=== PATIENT | female | born 1955 | race African-American/Black ===

== ENCOUNTER 2016-12-27 14:00 | Emergency (ER) | payer MEDICARE, OTHER ==
[~2016-12-27] VITALS: Ht 167.6 cm; Wt 65.8 kg
[~2016-12-27 14:00] MED LIST: IBUPROFEN600 MG ORAL
[2016-12-27] MEDS ORDERED: KENALOG 0.5% CR15 GM APPLIC (15:01)
[2016-12-27] MEDS ORDERED: ACNE CLEARING295 ML TP (15:01)
[2016-12-27 15:15] VITALS: BP 123/69
[2016-12-27 15:35] VITALS: BP 123/69
--- NOTE | 2016-12-27 16:13 | Emergency Room Report ---
History of Present Illness General Chief Complaint: Skin Rash/Abscess Source: Patient Present Illness HPI 61 y/o female c/o rash on face x 1 year. 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 Assoc sxs include light patches on face that are moderately pruritic. States she tried OTC eczema cream x 1 w/o improvement and was never given medication by her PCP to treat this condition. Patient is also requesting face wash for her acne. Allergies: Coded Allergies: No Known Allergies (Unverified , 12/17/15) Patient History Past Medical History: see triage record Now: No Reviewed Nursing Documentation: PMH: Agreed, PSxH: Agreed Nursing Documentation-PMH Past Medical History: No Stated History Hx Hypertension: Yes Review of Systems All Other Systems: negative except mentioned in HPI Physical Exam Vital Signs Date Time Temp Pulse Resp B/P Pulse Ox O2 Delivery O2 Flow Rate FiO2 12/27/16 14:40 98.4 59 18 123/69 98 Room Air Sp02 EP Interpretation: reviewed, normal General Appearance: no apparent distress, alert, GCS 15, non-toxic Head: normocephalic, atraumatic Eyes: bilateral eye PERRL, bilateral eye normal inspection ENT: hearing grossly normal, normal pharynx, no angioedema, normal voice Neck: full range of motion Respiratory: chest non-tender, lungs clear, normal breath sounds, speaking full sentences Cardiovascular #1: regular rate, rhythm, no edema Gastrointestinal: normal inspection, no rebound Musculoskeletal: normal inspection, gait/station normal, normal range of motion , non-tender Neurologic: alert, oriented x3, responsive, motor strength/tone normal, sensory intact, speech normal Psychiatric: judgement/insight normal, memory normal, mood/affect normal, no suicidal/homicidal ideation Skin: normal color, warm/dry, well hydrated, rash - Hypopigmented patches on cheaks bilaterally with silver scales Lymphatic: no adenopathy Medical Decision Making PA Attestation Dr. Hernandez is my supervising physician with whom patient management has been discussed with. Diagnostic Impression: Primary Impression: Rash and other nonspecific skin eruption ER Course Pt. presents to the ED c/o rash x 1 year Ddx considered but are not limited to atopic dermatitis, allergic reaction, dry skin, tinea versicolor, tinea Vital signs: are WNL, pt. is afebrile H&PE are most consistent with atopic dermatitis ORDERS: none required at this time, the diagnosis is clinical ED INTERVENTIONS: none required at this time. DISCHARGE: At this time pt. is stable for d/c to home. Will provide printed patient care instructions, and any necessary prescriptions. Care plan and follow up instructions have been discussed with the patient prior to discharge. Last Vital Signs Date Time Temp Pulse Resp B/P Pulse Ox O2 Delivery O2 Flow Rate FiO2 12/27/16 15:35 98.4 59 18 123/69 98 Room Air Disposition: HOME, SELF-CARE Condition: Stable Scripts Zach [employer] Micro/Skin Clnsr#24 (ACNE CLEARING SYSTEM) 295 Ml Combo..pkg 1 ML TP BEDTIME, #1 PACK Prov: ANAYA PARHAM 12/27/16 Triamcinolone Acet (Triamcinolone Acetonide) 15 Gm Cream..g. 15 GM APPLIC BID for 14 Days, #60 GM Prov: ANAYA PARHAM 12/27/16 Referrals: NOT CHOSEN [facility]/,REFERRING (PCP) Patient Instructions: Eczema, Rash ANAYA PARHAM Dec 27, 2016 16:13
== END 2016-12-27 15:25 | disposition home or self-care (01) ==
LOC: EMR 15:02
DX: R21 Rash and other nonspecific skin eruption (principal); I10 Essential (primary) hypertension
CPT/HCPCS: 99284

== ENCOUNTER 2018-04-18 10:23 | Emergency (ER) | payer MEDICARE, OTHER ==
[~2018-04-18] VITALS: Ht 167.6 cm; Wt 63.5 kg
[~2018-04-18 10:23] MED LIST changes: +ACNE CLEARING295 ML TP; +KENALOG 0.5% CR15 GM APPLIC
[2018-04-18 10:40] VITALS: BP 118/62
[2018-04-18] MEDS ORDERED: PREDNISONE20 MG ORAL (11:03)
[2018-04-18] MEDS ORDERED: CEPHALEXIN500 MG ORAL (11:03)
[2018-04-18] MEDS ORDERED: BENADRYL25 MG ORAL (11:03)
[2018-04-18 11:09] VITALS: BP 116/68
--- NOTE | 2018-04-18 11:16 | Emergency Room Report ---
History of Present Illness General Chief Complaint: Earache Source: Patient Present Illness HPI Patient presents with complaints of left ear swelling At the tragus of the ear patient had noticed increased swelling this morning Denies any fevers or chills There was a very minimal itching sensation Denies any change in her hearing Denies any discharge denies any trauma Patient wears glasses and feels that they did cause a little bit of irritation in the occipital region of the scalp Allergies: Coded Allergies: No Known Allergies (Unverified , 12/17/15) Patient History Past Medical History: see triage record Pertinent Family History: none Reviewed Nursing Documentation: PMH: Agreed; PSxH: Agreed Nursing Documentation-PMH Hx Hypertension: Yes Review of Systems All Other Systems: negative except mentioned in HPI Physical Exam Vital Signs Date Time Temp Pulse Resp B/P (MAP) Pulse Ox O2 Delivery O2 Flow Rate FiO2 04/18/18 10:26 98.0 74 20 118/62 97 Room Air 98.1 Sp02 EP Interpretation: reviewed, normal General Appearance: well appearing, no apparent distress Head: normocephalic, atraumatic Eyes: bilateral eye PERRL, bilateral eye EOMI ENT: normal pharynx, TMs + canals normal, uvula midline, other - Minimal swelling localized to the tragus Neck: full range of motion, supple Respiratory: lungs clear Cardiovascular #1: regular rate, rhythm Musculoskeletal: normal inspection Neurologic: alert, oriented x3, responsive Skin: other - As above Lymphatic: no adenopathy Medical Decision Making Diagnostic Impression: Primary Impression: insect bite Additional Impression: ear swelling ER Course The area in question has several differentials possible insect bite with local reaction Potential unrealized trauma The area appears well localized I feel ENT specialty consultation would be appropriate patient will discuss this with her primary physician And currently symptomatically treated Last Vital Signs Date Time Temp Pulse Resp B/P (MAP) Pulse Ox O2 Delivery O2 Flow Rate FiO2 04/18/18 11:09 98.1 78 22 116/68 98 Room Air 98.1 Status: unchanged Disposition: HOME, SELF-CARE Condition: Stable Scripts Diphenhydramine Hcl* (BENADRYL*) 25 Mg Capsule 25 MG ORAL Q6H PRN for Itching, #12 CAP Prov: Mayuri Keita DO 04/18/18 Prednisone* (PREDNISONE*) 20 Mg Tablet 20 MG ORAL DAILY, #6 TAB Prov: Mayuri Keita DO 04/18/18 Cephalexin* (KEFLEX*) 500 Mg Capsule 500 MG ORAL EVERY 6 HOURS for 5 Days, CAP Prov: Mayuri Keita DO 04/18/18 Referrals: NOT CHOSEN [facility]/MD,REFERRING (PCP) Patient Instructions: Edema, Insect Bite, [id number] Additional Instructions: Please see your primary physician for referral to ENT specialty. The area would benefit from consultation given the sensitivity of the ear Mayuri Keita DO April 18, 2018 11:16
== END 2018-04-18 11:27 | disposition home or self-care (01) ==
LOC: EMR 10:40
DX: S00.462A Insect bite (nonvenomous) of left ear, initial encounter (principal); W57.XXXA Bitten or stung by nonvenomous insect and other nonvenomous arthropods, initial encounter; Y92.9 Unspecified place or not applicable; H93.8X2 Other specified disorders of left ear; I10 Essential (primary) hypertension
CPT/HCPCS: 99284

== ENCOUNTER 2019-06-13 20:27 | Emergency (ER) | payer MEDICARE, OTHER ==
[~2019-06-13] VITALS: Ht 167.6 cm; Wt 59.0 kg
[~2019-06-13 20:27] MED LIST changes: +BENADRYL25 MG ORAL; +CEPHALEXIN500 MG ORAL; +PREDNISONE20 MG ORAL
[2019-06-13] MEDS ORDERED: AMLODIPINE BESYL5 MG ORAL (20:33)
[2019-06-13] MEDS ORDERED: BENZTROPINE ME0.5 MG PO (20:33)
[2019-06-13] MEDS ORDERED: HYDRALAZINE HCL25 M1 ORAL (20:33)
[2019-06-13 20:36] VITALS: BP 123/74
--- NOTE | 2019-06-13 20:40 | NUR ---
ED Nurse Note: patient ambulated to ed c/o burn on right hand since yesterday 1800. pt presents with burn on right 4th digit and blister. Pt is AO x 4times, VSS, on room air no distress. BIANCAD seen Pt at bedside.
[2019-06-13] MEDS ORDERED: Tetanus/Diptheria/Pertussis IM ONE (21:15)
[2019-06-13] MEDS ORDERED: SILVADENE20 GM TP (21:30)
[2019-06-13 21:39] VITALS: BP 130/82
--- NOTE | 2019-06-13 21:40 | NUR ---
ER DISCHARGE NOTE: Patient is cleared to be discharged per ERMD, pt is aox4, on room air, with stable vital signs. pt was given dc and prescription instructions, pt was able to verbalize understanding, pt id band removed without complications. pt is able to ambulate with steady gait. pt took all belongings.
[2019-06-13 21:41] VITALS: BP 130/82
--- NOTE | 2019-06-13 22:15 | Emergency Room Report ---
History of Present Illness General Chief Complaint: Burn/Smoke Inhalation Source: Patient Present Illness HPI 63-year-old female presents ED for evaluation. Complaining of burn injury to the right hand from cooking. Happened yesterday. Tetanus unknown. States that it started to blister and 1 of the blisters popped. Denies any pain. Denies any discharge. No other aggravating relieving factors. Denies any other associated symptoms Allergies: Coded Allergies: No Known Allergies (Unverified , 12/17/15) Patient History Past Medical History: HTN Past Surgical History: none Pertinent Family History: none Social History: Denies: smoking, alcohol use, drug use Now: No Immunizations: UTD Reviewed Nursing Documentation: PMH: Agreed; PSxH: Agreed Nursing Documentation-PMH Past Medical History: No History, Except For Hx Hypertension: Yes Review of Systems All Other Systems: negative except mentioned in HPI Physical Exam Vital Signs Date Time Temp Pulse Resp B/P (MAP) Pulse Ox O2 Delivery O2 Flow Rate FiO2 06/13/19 20:29 98.8 90 14 119/60 (79) 99 Room Air Sp02 EP Interpretation: reviewed, normal General Appearance: no apparent distress, alert, GCS 15, non-toxic Head: normocephalic Eyes: bilateral eye normal inspection, bilateral eye PERRL ENT: normal ENT inspection Neck: normal inspection Respiratory: normal inspection Cardiovascular #1: normal inspection Gastrointestinal: normal inspection Rectal: deferred Genitourinary: no CVA tenderness Musculoskeletal: back normal, gait/station normal, normal range of motion, non- tender Neurologic: alert, oriented x3, responsive, motor strength/tone normal, sensory intact, speech normal Psychiatric: normal inspection Skin: other - 2nd degree burn to fingers. blistering noted Medical Decision Making Diagnostic Impression: Primary Impression: Burn injury ER Course Hospital Course 63 yo F presents to ED c/o burn to R hand Differential diagnoses include: Cellulitis, dermatitis, insect bite, abscess, burn Clinical course Patient placed on stretcher. After initial history, physical exam reveals a female in no acute distress. on exam there is 2nd degree burn noted to fingers on R hand. blsitering noted discussed findings with patient. Tetanus given. silvadene with dressing applied. Safe for discharge for close outpatient follow-up Diagnosis - burn injury stable and discharged to home with prescription for silvadene cream. Instructed to followup with PMD. Instructed return to ED if symptoms recur or worsen Last Vital Signs Date Time Temp Pulse Resp B/P (MAP) Pulse Ox O2 Delivery O2 Flow Rate FiO2 06/13/19 21:41 98.2 74 16 130/82 100 Room Air Status: improved Disposition: HOME, SELF-CARE Condition: Stable Scripts Silver Sulfadiazine (SILVADENE) 20 Gm Cream..g. 20 GM TP BID, #20 GM Prov: Eliu Vines MD 06/13/19 Referrals: NON PHYSICIAN (PCP) Patient Instructions: Second-Degree Burn Eliu Vines MD Jun 13, 2019 22:15
== END 2019-06-13 22:22 | disposition home or self-care (01) ==
LOC: EMR 21:07
DX: T23.231A Burn of second degree of multiple right fingers (nail), not including thumb, initial encounter (principal); X08.8XXA Exposure to other specified smoke, fire and flames, initial encounter; Y93.G3 Activity, cooking and baking; Y92.9 Unspecified place or not applicable; I10 Essential (primary) hypertension; Z23 Encounter for immunization
CPT/HCPCS: 90471; 90715; 99282